=== PATIENT | male | born 1980 | race Two or more races ===

== ENCOUNTER 2025-02-20 21:29 | Emergency (ER) | payer SELFPAY ==
[~2025-02-20] VITALS: Ht 170.2 cm; Wt 72.6 kg
[2025-02-20] MEDS ORDERED: LABETALOL HCL 100 MG/20 ML VIAL ONE (22:02)
[2025-02-20 22:10] LABS: PLATELET COUNT (AUTO) 252 K/uL (152-348); RED BLOOD CELL COUNT(AUTO) 5.25 MIL/uL (4.06-5.63); RED CELL DISTRIBUTION WIDTH 14.0 % (12.1-16.2); WHITE BLOOD COUNT (AUTO) 23.8 K/uL (3.6-10.2)
[2025-02-20 22:19] LABS: CREATININE 0.9 mg/dL (0.6-1.3); SODIUM SERUM 141 mmol/L (136-145); UREA NITROGEN, BLOOD 13 mg/dL (7-18)
[2025-02-20] MEDS ORDERED: PROPOFOL 100 ML ONE (22:19)
[2025-02-20 22:24] LABS: ASPARTATE AMINOTRANSFERASE 40 U/L (15-37); TOTAL PROTEIN, SERUM 9.0 g/dL (6.4-8.2)
[2025-02-20 22:25] LABS: ETHANOL < 10 MG/DL (0-10)
[2025-02-20] MEDS: ROCURONIUM BROMIDE 50 MG/5 ML VIAL IV ONE (22:30)
[2025-02-20] MEDS ORDERED: ETOMIDATE 20 MG/10 ML VIAL ONE (22:30)
[2025-02-20] MEDS ORDERED: ROCURONIUM BROMIDE 50 MG/5 ML VIAL ONE ×2 (22:30)
[2025-02-20] MEDS: ETOMIDATE 20 MG/10 ML VIAL IV ONE (22:30)
[2025-02-20] MEDS: LABETALOL HCL 100 MG/20 ML VIAL IV ONE (22:30)
[2025-02-21 00:06] LABS: *BILIRUBIN,URIN NEGATIVE (NEGATIVE); *BLOOD, URINE NEGATIVE (NEGATIVE); *CLARITY,URINE CLEAR (CLEAR); *COLOR,URINE YELLOW (YELLOW); *KETONES,URINE 1+ (NEGATIVE); *PROTEIN,URINE 1+ (NEGATIVE); *UROBILINOGEN,URINE 0.2 E.U./dl (NORMAL); LEUKOCYTE ESTERASE ,URINE NEGATIVE (NEGATIVE); NITRITE, URINE NEGATIVE (NEGATIVE); UGLUCOSE 2+ (NEGATIVE)
[2025-02-21] MEDS ORDERED: PROPOFOL 100 ML ONE ×2 (00:10→03:44)
[2025-02-21 00:13] LABS: SQUAMOUS EPITHELIAL CELL,UR FEW /HPF (NONE SEEN)
[2025-02-21] MEDS: POTASSIUM CHLORIDE 20 MEQ POWDER PACKET GT ONE (00:15)
[2025-02-21] MEDS: POTASSIUM CHLORIDE 50 ML IV SCH (00:15)
[2025-02-21 00:21] LABS: *AMPHETAMINE, URINE NEGATIVE (NEGATIVE); *BARBITURATE, URINE NEGATIVE (NEGATIVE); *BENZODIAZEPINE, URINE NEGATIVE (NEGATIVE); *CANNABINOID, URINE NEGATIVE (NEGATIVE); *COCCAINE, URINE NEGATIVE (NEGATIVE); *OPIATE, URINE NEGATIVE (NEGATIVE); *PHENCYCLIDINE SCREEN,URINE NEGATIVE (NEGATIVE); FENTANYL, URINE NEGATIVE (NEGATIVE)
[2025-02-21] MEDS ORDERED: IOHEXOL 350 100 ML INFUS..BTL ONE (00:32)
[2025-02-21] MEDS ORDERED: SWABABLE VALVE TRANSFER SET EA MC ONE (00:33)
[2025-02-21] MEDS ORDERED: IV NORMAL SALINE 250 ML IV ONE (00:33)
[2025-02-21] MEDS ORDERED: POTASSIUM CHLORIDE 50 ML ONE (00:59)
[2025-02-21] MEDS ORDERED: POTASSIUM CHLORIDE 20 MEQ POWDER PACKET ONE (00:59)
[2025-02-21] MEDS: PROPOFOL 100 ML IV PRN (02:45)
[2025-02-21] MEDS ORDERED: POTASSIUM CHLORIDE 150 ML ONE (02:49)
[2025-02-21] MEDS ORDERED: BACITRACIN ZINC OINT 15 GM TUBE ONE (03:23)
[2025-02-21] MEDS: IV LACTATED RINGERS SOLUTION 1,000 ML IV PRN (03:35)
[2025-02-21] MEDS: BACITRACIN ZINC OINT 15 GM TUBE TOP STA (03:35)
[2025-02-21] MEDS: LABETALOL HCL 100 MG/20 ML VIAL IV ONE (04:33)
[2025-02-21 05:00] VITALS: BP 126/81
[2025-02-21 05:31] VITALS: BP 123/81; TEMP 97.8; O2SAT 100
== END 2025-02-21 05:32 | disposition short-term general hospital (02) ==
LOC: ER 21:33
DX: S01.01XA Laceration without foreign body of scalp, initial encounter (principal); R41.82 Altered mental status, unspecified; I60.9 Nontraumatic subarachnoid hemorrhage, unspecified; E87.6 Hypokalemia; I16.1 Hypertensive emergency; J98.11 Atelectasis; X58.XXXA Exposure to other specified factors, initial encounter; Y93.89 Activity, other specified; Y92.89 Other specified places as the place of occurrence of the external cause; Y99.8 Other external cause status; Z79.899 Other long term (current) drug therapy
CPT/HCPCS: 80076; 80048; 81001; 82140; 84443; 85025; 85730; 84484; 36415 ×2; 71045; 70450; 71250; 72125; 74176; 31500; 93005; 99291; 80299; 80320; 80307; 83735; 70496; 96365; 96366; 96368; 96375; 96376; J3490 ×4; J1953; Q9967; J3480 ×2; J7120; A4606; A4663; G0480